=== PATIENT | female | born 1950 | race Caucasian/White ===

== ENCOUNTER → 2017-09-04 | Outpatient (CLI) | payer MEDICARE, BC ==
[~2017-09-04] MED LIST: FISH1CAP PO; HYDR12.58 PO; LEVO75TA PO; LINA145C PO; METO-93 PO; OXYC-307 PO; PARO40TA3 PO; ROSU20TA PO
[2017-09-04 12:31] LABS: MICROSCOPIC AUTO
[2017-09-04 12:32] LABS: BASOPHILS # (AUTO) 0.03 x10^3/uL (0-0.1); BASOPHILS % (AUTO) 0 % (0-1); EOSINOPHILS # (AUTO) 0.24 x10^3/uL (0-0.4); EOSINOPHILS % (AUTO) 3 % (1-7); LYMPHOCYTES # (AUTO) 1.87 x10^3/uL (1-3.4); LYMPHOCYTES % (AUTO) 23 % (22-44); MD NO; MEAN CORPUSCULAR HEMOGLOBIN 27.3 pg (27.0-34.8); MEAN CORPUSCULAR HGB CONC 32.3 g/dL (32.4-35.8); MEAN CORPUSCULAR VOLUME 84.7 fL (80-100); MEAN PLATELET VOLUME 8.5 fL (7.4-10.4); MONOCYTES # (AUTO) 0.82 x10^3/uL (0.2-0.8); MONOCYTES % (AUTO) 10 % (2-9); NEUTROPHILS # (AUTO) 5.38 x10^3/uL (1.8-6.8); NEUTROPHILS % (AUTO) 65 % (42-75); PLATELET COUNT 241 x10^3/uL (130-400); RED BLOOD COUNT 4.62 x10^6/uL (3.82-5.3); RED CELL DISTRIBUTION WIDTH 14.5 % (9.6-15.2)
[2017-09-04 12:33] LABS: CULTURE INDICATED? YES
[2017-09-04 12:48] LABS: ALANINE AMINOTRANSFERASE 46 U/L (12-78); ALBUMIN 3.7 g/dL (3.4-5.0); ANION GAP 7 mmol/L (5-15); CHLORIDE 107 mmol/L (98-107); CREATININE 0.71 mg/dL (0.55-1.02)
[2017-09-04 12:50] LABS: ALKALINE PHOSPHATASE 75 U/L (45-117); BILIRUBIN,TOTAL 1.5 mg/dL (0.2-1.0); TOTAL PROTEIN 7.4 g/dL (6.4-8.2)
== END | disposition home or self-care (01) ==
LOC: STAR 11:12
PROVIDERS: ATTEND Orthopaedic Surgery
DX: Z01.818 Encounter for other preprocedural examination (principal); T84.84XA Pain due to internal orthopedic prosthetic devices, implants and grafts, initial encounter
CPT/HCPCS: 36415; 80053; 81001; 85025; 87081; 87086; 87147; 93005

== ENCOUNTER 2017-09-15 06:42 | Inpatient (IN) | payer MEDICARE, BC ==
[~2017-09-15] VITALS: Ht 170.2 cm; Wt 85.3 kg
[~2017-09-15 06:42] MED LIST changes: +EPINEPHRINE 1 MG/ML, 1ML ONE; +KETOROLAC 60 MG/2 ML ONE; +ROPIvacaine/PF 0.2%, 20 ML ONE; +SODIUM CHLORIDE 0.9% 100 ML ONE; +TRANEXAMIC ACID 100 MG/ML, 10ML ONE
[2017-09-15] MEDS ORDERED: VANCOMYCIN PER PHARMACY MC ONE (06:50)
[2017-09-15] MEDS ORDERED: VANCOMYCIN 1,500 MG in SODIUM CHLORIDE 0.9% 250 ML IV ONE (07:00)
[2017-09-15] MEDS ORDERED: OXYC-302 PO (07:28)
[2017-09-15] MEDS ORDERED: PROP40TA PO (07:28)
[2017-09-15] MEDS ORDERED: LACTATED RINGERS 1,000 ML IV SCH (07:31)
[2017-09-15] MEDS ORDERED: MIDAZOLAM 1 MG/ML, 2ML ONE (08:14)
[2017-09-15] MEDS ORDERED: FENTANYL PF 100 MCG/2ML ONE ×2 (08:14→11:56)
[2017-09-15] MEDS ORDERED: GABAPENTIN 300 MG CAPSULE PO ONE (08:30)
[2017-09-15] MEDS ORDERED: ACETAMINOPHEN 500 MG TABLET PO ONE (08:30)
[2017-09-15] MEDS ORDERED: TAMSULOSIN 0.4 MG CAP.ER.24H PO ONE (08:30)
[2017-09-15] MEDS ORDERED: DIAZEPAM 5 MG TABLET PO ONE (08:30)
[2017-09-15] MEDS ORDERED: METOCLOPRAMIDE 10MG TABLET PO ONE (08:30)
[2017-09-15] MEDS ORDERED: FAMOTIDINE 20 MG TABLET PO ONE (08:30)
[2017-09-15] MEDS ORDERED: OxyconTIN ER 10 MG TAB.ER PO ONE (08:30)
[2017-09-15] MEDS ORDERED: ONDANSETRON 2MG/ML, 2ML ONE (09:39)
[2017-09-15] MEDS ORDERED: SUCCINYLCHOLINE 20 MG/ML, 10ML ONE (09:39)
[2017-09-15] MEDS ORDERED: ROCURONIUM 10MG/ML,5ML ONE (09:39)
[2017-09-15] MEDS ORDERED: PROPOFOL 10 MG/ML, 20ML ONE (09:39)
[2017-09-15] MEDS ORDERED: DEXAMETHASONE 4 MG/ML, 1ML ONE (09:39)
[2017-09-15] MEDS ORDERED: GLYCOPYRROLATE 0.2MG/1ML, 5ML ONE (09:39)
[2017-09-15] MEDS ORDERED: CEFAZOLIN 1,000 MG ONE (09:39)
[2017-09-15] MEDS ORDERED: BISACODYL 10 MG SUPP PR PRN (10:00)
[2017-09-15] MEDS ORDERED: DIAZEPAM 5 MG TABLET PO PRN (10:00)
[2017-09-15] MEDS ORDERED: ALUMINUM/MAG/SIMETHICONE 30 ML UDC PO PRN (10:00)
[2017-09-15] MEDS ORDERED: HYDROmorphone 2 MG/ML, 1ML IV PRN (10:00)
[2017-09-15] MEDS ORDERED: DIPHENHYDRAMINE 25 MG CAPSULE PO PRN (10:00)
[2017-09-15] MEDS ORDERED: PROMETHAZINE 12.5 MG SUPP PR PRN (10:00)
[2017-09-15] MEDS ORDERED: PROMETHAZINE 25 MG/ML, 1ML IM PRN (10:00)
[2017-09-15] MEDS ORDERED: SENNA/DOCUSATE TABLET PO PRN (10:00)
[2017-09-15] MEDS ORDERED: OXYcodone IR 5MG TABLET PO PRN (10:00)
[2017-09-15] MEDS ORDERED: ONDANSETRON 2MG/ML, 2ML IV PRN (10:00)
[2017-09-15] MEDS ORDERED: KETOROLAC 30 MG/1 ML IV SCH (10:00)
[2017-09-15] MEDS ORDERED: ONDANSETRON 4 MG TABLET PO PRN (10:00)
[2017-09-15] MEDS ORDERED: MAGNESIUM HYDROXIDE 8%, 30ML UDC PO PRN (10:00)
[2017-09-15] MEDS ORDERED: OXYcodone IR 5MG TABLET PO SCH (10:00)
[2017-09-15] MEDS ORDERED: ZOLPIDEM 5MG TABLET PO PRN (10:00)
[2017-09-15] MEDS ORDERED: ROPIvacaine/PF 0.2%, 100ML 550 ML (check volume) INJ ONE (10:30)
[2017-09-15] MEDS ORDERED: MORPHINE SULFATE 4 MG/ML, 1ML IVPush PRN (11:00)
[2017-09-15] MEDS ORDERED: PROMETHAZINE 25 MG/ML, 1ML IV PRN (11:00)
[2017-09-15] MEDS ORDERED: ALBUTEROL SULFATE 2.5 MG/3 ML NPPB PRN (11:00)
[2017-09-15] MEDS ORDERED: DIAZEPAM 5 MG/ML, 2ML IVPush PRN (11:00)
[2017-09-15] MEDS ORDERED: MEPERIDINE/PF 25MG/0.5ML IVPush PRN (11:00)
[2017-09-15] MEDS: FENTANYL PF 100 MCG/2ML IV PRN ×2 (11:59→12:10)
[2017-09-15] MEDS ORDERED: TRANEXAMIC ACID 1,000 MG in SODIUM CHLORIDE 0.9% 100 ML IVPB ONE (12:00)
[2017-09-15 12:50] VITALS: BP 142/75
[2017-09-15 13:50] VITALS: BP 114/62
[2017-09-15] MEDS: TAMSULOSIN 0.4 MG CAP.ER.24H PO SCH (13:52)
[2017-09-15] MEDS: OXYcodone IR 5MG TABLET PO SCH ×3 (14:06→22:22)
[2017-09-15] MEDS: ACETAMINOPHEN 650 MG/20.3 ML UDC PO SCH ×2 (14:12→21:13)
[2017-09-15] MEDS: CEFAZOLIN PMX 2GM/50ML 50 ML IVPB SCH (17:17)
[2017-09-15] MEDS: D5%-0.45% NACL 1,000 ML IV SCH ×2 (17:37→18:02)
[2017-09-15 19:45] VITALS: BP 120/50
[2017-09-15] MEDS: DOCUSATE 100 MG CAPSULE PO SCH (21:13)
[2017-09-15] MEDS: PROPRANOLOL 40 MG TABLET PO SCH (21:13)
[2017-09-15 23:31] VITALS: BP 148/67
[2017-09-16] MEDS: CEFAZOLIN PMX 2GM/50ML 50 ML IVPB SCH (00:55)
[2017-09-16] MEDS: D5%-0.45% NACL 1,000 ML IV SCH (00:55)
[2017-09-16] MEDS: OXYcodone IR 5MG TABLET PO SCH ×3 (02:28→10:07)
[2017-09-16] MEDS: ACETAMINOPHEN 650 MG/20.3 ML UDC PO SCH ×2 (02:28→07:47)
[2017-09-16 02:57] VITALS: BP 145/70
[2017-09-16] MEDS ORDERED: ASPIRIN 81 MG TABLET EC PO SCH (06:00)
[2017-09-16] MEDS ORDERED: DEXAMETHASONE 4 MG/ML, 1ML IVPush SCH (06:00)
[2017-09-16] MEDS ORDERED: LEVOTHYROXINE 75 MCG TABLET PO SCH (06:00)
[2017-09-16 07:03] VITALS: BP 161/76
[2017-09-16] MEDS: DOCUSATE 100 MG CAPSULE PO SCH (07:47)
[2017-09-16] MEDS: TAMSULOSIN 0.4 MG CAP.ER.24H PO SCH (07:48)
[2017-09-16] MEDS: PROPRANOLOL 40 MG TABLET PO SCH (07:48)
[2017-09-16] MEDS ORDERED: MULTIVITAMINS/MINERALS TABLET PO SCH (09:00)
[2017-09-16] MEDS ORDERED: HYDROCHLOROTHIAZIDE 12.5 MG CAPSULE PO SCH (09:00)
[2017-09-16] MEDS ORDERED: PAROXETINE 20 MG TABLET PO SCH (09:00)
[2017-09-16] MEDS ORDERED: OXYC5CAP2 PO (11:11)
[2017-09-16] MEDS ORDERED: KETOROLAC 30 MG/1 ML IVPush SCH (12:00)
== END 2017-09-16 11:20 | disposition home or self-care (01) | DRG 488 ==
LOC: ORIP 06:42 → 4NOR 12:42 → DCLOUNGE 09-16 11:10
PROVIDERS: ADMIT Orthopaedic Surgery; ATTEND Orthopaedic Surgery
PROC: 0SUV09Z Supplement Right Knee Joint, Tibial Surface with Liner, Open Approach (ICD-10-PCS; 2017-09-15)
PROC: 0QBG0ZZ Excision of Right Tibia, Open Approach (ICD-10-PCS; 2017-09-15)
PROC: 0SPC09Z Removal of Liner from Right Knee Joint, Open Approach (ICD-10-PCS; principal; 2017-09-15 09:45)
DX: T84.022A Instability of internal right knee prosthesis, initial encounter (principal); R71.0 Precipitous drop in hematocrit; Y79.2 Prosthetic and other implants, materials and accessory orthopedic devices associated with adverse incidents; Y92.89 Other specified places as the place of occurrence of the external cause; Z88.6 Allergy status to analgesic agent; Z88.0 Allergy status to penicillin; Z87.11 Personal history of peptic ulcer disease
CPT/HCPCS: 36415; 85014; 85018; J0171; J0690; J1100; J1885; J2250; J2405; J2704; J2795; J3010; J3370; J3490; C1776; J0330; J7050; J7120